=== PATIENT | female | born 2000 | race Caucasian/White ===

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

== ENCOUNTER 2024-11-09 12:29 | Emergency (ER) | payer OTHER, SELFPAY ==
[2024-11-09] MEDS ORDERED: LIDOCAINE VISCOUS 2% 10ML ORAL SOLN ONE (13:03)
[2024-11-09 13:22] LABS: Influenza A Ag Negative; Influenza B Ag Negative; SARS-CoV-2 Antigen Rapid Res Negative (Negative)
--- NOTE | 2024-11-09 13:23 | EDPHYS ---
Physician Documentation [facility] Name: Penelope Donahue Age: 24 yrs Sex: Female : 2000 Arrival Date: 11/09/2024 Time: 12:29 Bed 12 Private MD: ED Physician Steven Walsh HPI: 11/09 13:45 This 24 yrs old Female presents to ER via Ambulatory with complaints of Cough, Sore sb4 Throat, Headache. 13:45 Patient reports cough, congestion, sore throat, headache, subjective fever, sinus sb4 congestion/pain/pressure for about a week now. significant other is developing similar symptoms. 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 - Infectious Disease History:: Denies. - Social history:: Smoking status: Reported history of juuling and/or vaping. ROS: 13:45 Skin: Negative for injury, rash, and discoloration, sb4 13:45 Constitutional: Positive for body aches, chills, fatigue, fever, malaise, 13:45 ENT: Positive for sinus congestion, sinus pain, sore throat, 13:45 Respiratory: Positive for cough, 13:45 All other systems are negative, Exam: 13:45 Constitutional: This is a well developed, well nourished patient who is awake, alert, sb4 and in no acute distress. Eyes: Extra-ocular motions intact. Periorbital areas with no swelling, redness, or edema. Cardiovascular: Regular rate and rhythm with a normal S1 and S2. Respiratory: No increased work of breathing, no retractions or nasal flaring. Abdomen/GI: Soft, non-tender, no distension. Skin: Warm, dry with normal turgor. Normal color with no rashes, no lesions, and no evidence of cellulitis. 13:45 Head/face: Sinus tenderness, that is moderate, is located over the right frontal sinus, left frontal sinus, right maxillary sinus and left maxillary sinus, 13:45 ENT: TM's: are normal, no acute changes, Posterior pharynx: Tonsils: are normal in appearance, erythema, that is mild, Cobblestoning, Vital Signs: 12:43 BP 119 / 92; Pulse 114; Resp 18; Temp 98.8; Pulse Ox 100% ; Weight 56.7 kg; Height 5 me1 ft. 6 in. ; Pain 7/10; 13:07 BP 115 / 83; Pulse 105; Resp 19; Temp 98.6; Pulse Ox 99% on R/A; rg5 12:43 Body Mass Index 20.18 (56.70 kg, 167.64 cm) me1 12:43 Pain Scale: Adult me1 MDM: 12:41 Medical Screening Exam initiated sb4 13:48 Differential Diagnosis: Influenza Upper Respiratory Infection Sinusitis Pharyngitis. sb4 Data reviewed: vital signs, nurses notes, lab test result(s), and as a result, I will discharge patient. Test considered but Not performed: X-ray: Chest x-ray not indicated, minimal cough, lungs are clear on auscultation. Counseling: I had a detailed discussion with the patient and/or guardian regarding the historical points, exam findings, and any diagnostic results supporting the discharge/admit diagnosis, lab results, the need for outpatient follow up, for definitive care, to return to the emergency department if symptoms worsen or persist or if there are any questions or concerns that arise at home. 11/09 12:53 Order name: Group A Streptococcus Rapid; Complete Time: 13:13 sb4 11/09 12:53 Order name: COVID-19 Ag + Flu A+B Ag; Complete Time: 13:22 sb4 11/09 13:16 Order name: Throat Culture EDMS Administered Medications: 13:07 Drug: Viscous Lidocaine Mucous Membrane Liquid (4 %) 5 ml Mucous Membrane once; swallow rg5 Route: Mucous Membrane; 13:24 Follow up: Response: No adverse reaction rg5 Disposition Summary: 11/09/24 13:23 Discharge Ordered Notes: Location: Home sb4 Problem: an ongoing problem sb4 Symptoms: are unchanged sb4 Condition: Stable sb4 Diagnosis - Acute sinusitis with pharyngitis sb4 Followup: sb4 - With: Emergency Department - When: As needed - Reason: Trouble breathing, Worsening of condition Discharge Instructions: - Discharge Summary Sheet sb4 - Sinusitis, Adult, [id number] sb4 - Pharyngitis, [id number] sb4 Forms: - Antibiotic Education sb4 - Patient Portal Instructions sb4 - Leadership Thank You Letter sb4 Prescriptions: - Ibuprofen 800 mg Oral Tablet - take 1 tablet ORAL route every 8 hours As needed take with food; 30 tablet; sb4 Refills: 0, Product Selection Permitted - Doxycycline Hyclate 100 mg Oral Tablet - take 1 tablet ORAL route every 12 hours; 20 tablet; Refills: 0, Product sb4 Selection Permitted Signatures: Dispatcher [employer] Nery Redman, PACastroC PACastroC sb4 Beth Kirkpatrick, RN RN me1 Joseluis Mckeon RN RN rg5
--- NOTE | 2024-11-09 13:23 | ER ---
Nurse's Notes [facility] Name: Penelope Donahue Age: 24 yrs Sex: Female : 2000 Arrival Date: 11/09/2024 Time: 12:29 Bed 12 Private MD: Diagnosis: Acute sinusitis with pharyngitis Presentation: 11/09 12:43 Chief complaint: Patient states: cough, congestion, STACK, body aches, chills, fever and me1 sore throat for a week. Pain 7/10. Unable to eat due to painful throat. Coronavirus screen: Vaccine status: Patient reports being unvaccinated. Ebola Screen: No symptoms or risks identified at this time. Initial Sepsis Screen: Does the patient meet any 2 criteria? HR > 90 bpm. Does the patient have a suspected source of infection? No. Patient's initial sepsis screen is negative. Risk Assessment: Do you want to hurt yourself or someone else? Patient reports no desire to harm self or others. Onset of symptoms is unknown. 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 - Infectious Disease History:: Denies. - Social history:: Smoking status: Reported history of juuling and/or vaping. Screenin:00 Abuse screen: Denies threats or abuse. Nutritional screening: No deficits noted. rg5 Tuberculosis screening: No symptoms or risk factors identified. 13:37 [facility] ED Fall Risk Assessment (Adult) History of falling in the last 3 months, rg5 including since admission No falls in past 3 months (0 pts) Confusion or Disorientation No (0 pts) Intoxicated or Sedated No (0 pts) Impaired Gait No (0 pts) Mobility Assist Device Used No (0 pt) Altered Elimination No (0 pt) Score/Fall Risk Level 0 - 2 = Low Risk Oriented to surroundings, Maintained a safe environment. Assessment: 13:08 Pain: Complains of pain in left aspect of posterior pharynx and right aspect of rg5 posterior pharynx Quality of pain is described as aching. Respiratory: Reports cough that is Airway is patent Respiratory effort is even, labored, Breath sounds are clear. EENT: Throat is pink pain. Vital Signs: 12:43 BP 119 / 92; Pulse 114; Resp 18; Temp 98.8; Pulse Ox 100% ; Weight 56.7 kg; Height 5 me1 ft. 6 in. ; Pain 7/10; 13:07 BP 115 / 83; Pulse 105; Resp 19; Temp 98.6; Pulse Ox 99% on R/A; rg5 12:43 Body Mass Index 20.18 (56.70 kg, 167.64 cm) me1 12:43 Pain Scale: Adult me1 ED Course: 12:32 Patient arrived in ED. ts1 12:34 [facility] sb4 12:34 Steven Walsh MD is Attending Physician. sb4 12:45 Triage completed. me1 12:45 Arm band placed on Patient placed in an exam room. me1 12:49 COVID swab sent to lab. Flu and/or RSV swab sent to lab. Strep swab sent to lab. me1 12:55 Joseluis Mckeon, ASHLEY is Primary Nurse. rg5 13:00 Provided Education on: post er care. rg5 13:37 Patient has correct armband on for positive identification. Bed in low position. Door rg5 closed. Noise minimized. 13:37 No provider procedures requiring assistance completed. Patient did not have IV access rg5 during this emergency room visit. Administered Medications: 13:07 Drug: Viscous Lidocaine Mucous Membrane Liquid (4 %) 5 ml Mucous Membrane once; swallow rg5 Route: Mucous Membrane; 13:24 Follow up: Response: No adverse reaction rg5 Outcome: 13:23 Discharge ordered by . sb4 13:37 Discharged to home ambulatory, rg5 13:37 Condition: stable 13:37 Discharge instructions given to patient, Instructed on discharge instructions, follow up and referral plans. Demonstrated understanding of instructions, follow-up care, Prescriptions given X 2, 13:39 Patient left the ED. rg5 Signatures: Nery Chanel PA-C PA-C sb4 Maddie Finley PAS PAS ts1 Beth Kirkpatrick RN RN me1 Joseluis Mckeon, RN RN rg5
[2024-11-09 14:09] VITALS: BP 115/83; TEMP 98.6; O2SAT 99
== END 2024-11-09 13:39 | disposition home or self-care (01) ==
LOC: ER 12:29
DX: J01.90 Acute sinusitis, unspecified (principal); J02.9 Acute pharyngitis, unspecified; Z11.52 Encounter for screening for COVID-19
CPT/HCPCS: 36415; 87070; 87428; 99284